=== PATIENT | male | born 2000 | race African-American/Black ===

== ENCOUNTER 2018-02-25 17:32 | Inpatient (IN) | payer OTHER ==
[2018-02-25] MEDS ORDERED: SODIUM CHLORIDE 0.9% 1,000 ML IV STA (17:35)
--- NOTE | 2018-02-25 17:55 | ED ---
General Adult HPI - General Chief complaint: Syncope Stated complaint: syncope Time Seen by Provider: 02/25/18 17:34 Source: patient, RN notes reviewed, old records reviewed Mode of arrival: EMS Limitations: no limitations - History of Present Illness Initial comments: 17-year-old male presents from work with syncopal episode. Patient is a cook at a local restaurant. He was feeling somewhat lightheaded, he went to leave the room, fell striking his head on the doorway. He was unconscious for several minutes. Brought in by EMS. Patient states prior to the fall he did have some vision changes and lightheadedness. He states earlier in the evening he was feeling somewhat lightheaded but this resolved with rest. No chest pain or palpitations. No nausea vomiting or diarrhea. He did state that yesterday he did not eat or drink much. No fever or chills. Patient denies fever. Denies abdominal pain. Denies headache. Denies focal weakness or numbness. Patient has had 2 separate syncopal episodes in the past first one was at the age of 8. - Related Data Home Medications Medication Instructions Recorded Confirmed No Known Home Medications [No 02/25/18 02/25/18 Known Home Medications] Allergies Allergy/AdvReac Type Severity Reaction Status Date / Time No Known Allergies Allergy Verified 02/25/18 17:53 Review of Systems ROS Statement: Those systems with pertinent positive or pertinent negative responses have been documented in the HPI. ROS Other: All systems not noted in ROS Statement are negative. Past Medical History Past Medical History: Syncope History of Any Multi-Drug Resistant Organisms: None Reported Past Surgical History: No Surgical Hx Reported Past Psychological History: No Psychological Hx Reported Smoking Status: Current every day smoker Past Alcohol Use History: None Reported Past Drug Use History: Marijuana General Exam Limitations: no limitations General appearance: alert, in no apparent distress Head exam: Present: atraumatic, normocephalic Eye exam: Present: normal appearance, PERRL ENT exam: Present: normal exam Neck exam: Present: normal inspection. Absent: tenderness, meningismus Respiratory exam: Present: normal lung sounds bilaterally. Absent: respiratory distress Cardiovascular Exam: Present: regular rate, normal rhythm GI/Abdominal exam: Present: soft. Absent: distended, tenderness, guarding Extremities exam: Present: normal inspection, normal capillary refill. Absent: pedal edema Back exam: Present: normal inspection, full ROM Neurological exam: Present: alert, oriented X3, CN II-XII intact. Absent: motor sensory deficit Psychiatric exam: Present: normal affect, normal mood Skin exam: Present: warm, dry, intact. Absent: cyanosis, diaphoretic Course Vital Signs 02/25/18 02/25/18 02/25/18 17:34 18:30 19:16 Temperature 97.6 F Pulse Rate 48 L 69 50 L Respiratory 18 18 18 Rate Blood Pressure 105/57 108/57 116/59 O2 Sat by Pulse 100 100 100 Oximetry EKG Findings - EKG Comments: EKG Findings:: EKG sinus bradycardia, incomplete right bundle branch block, rate of 51, ND interval 162, QRS duration 100, QTC 403, there is ST segment elevation in the precordial leads specifically V2 and V3. Medical Decision Making - Medical Decision Making 17-year-old male with syncopal episode. Sick be may be related to dehydration and the exposure however EKG does show some ST segment changes and an incomplete right bundle, there is concern for Brugada syndrome. Patient has had 3 syncopal episodes in his lifetime. He will be admitted for further evaluation with EP on consult. Chest x-ray and head CT are negative. Electrolytes within normal limits. Hemoglobin stable. - Lab Data Result diagrams: 02/25/18 17:41 02/25/18 17:41 Lab Results 02/25/18 02/25/18 02/25/18 Range/Units 17:41 17:41 17:41 WBC 3.6 L (4.0-11.0) k/uL RBC 4.24 L (4.30-5.90) m/uL Hgb 13.8 (13.0-17.5) gm/dL Hct 40.3 (39.0-53.0) % MCV 95.2 (80.0-100.0) fL MCH 32.5 (25.0-35.0) pg MCHC 34.2 (31.0-37.0) g/dL RDW 12.7 (11.5-15.5) % Plt Count 190 (150-450) k/uL Neutrophils % 49 % Lymphocytes % 41 % Monocytes % 7 % Eosinophils % 1 % Basophils % 0 % Neutrophils # 1.8 (1.3-7.7) k/uL Lymphocytes # 1.5 (1.0-4.8) k/uL Monocytes # 0.3 (0-1.0) k/uL Eosinophils # 0.0 (0-0.7) k/uL Basophils # 0.0 (0-0.2) k/uL PT (9.0-12.0) sec INR (<1.2) APTT (22.0-30.0) sec Sodium 140 (137-145) mmol/L Potassium 3.9 (3.5-5.1) mmol/L Chloride 101 (98-107) mmol/L Carbon Dioxide 27 (22-30) mmol/L Anion Gap 12 mmol/L BUN 14 (9-20) mg/dL Creatinine 1.10 (0.66-1.25) mg/dL Est GFR (CKD-EPI)AfAm >90 (>60 ml/min/1.73 sqM) Est GFR (CKD-EPI)NonAf >90 (>60 ml/min/1.73 sqM) Glucose 146 H (74-99) mg/dL Calcium 9.3 (8.4-10.2) mg/dL Magnesium 1.6 (1.6-2.3) mg/dL Total Bilirubin 0.9 (0.2-1.3) mg/dL AST 18 (17-59) U/L ALT 26 (21-72) U/L Alkaline Phosphatase 36 L (38-126) U/L Total Creatine Kinase 61 (55-170) U/L CK-MB (CK-2) 0.4 (0.0-2.4) ng/mL CK-MB (CK-2) Rel Index 0.7 Troponin I <0.012 (0.000-0.034) ng/mL Total Protein 6.6 (6.3-8.2) g/dL Albumin 4.2 (3.5-5.0) g/dL Urine Color Urine Appearance (Clear) Urine pH (5.0-8.0) Ur Specific [place] (1.001-1.035) Urine Protein (Negative) Urine Glucose (UA) (Negative) Urine Ketones (Negative) Urine Blood (Negative) Urine Nitrite (Negative) Urine Bilirubin (Negative) Urine Urobilinogen (<2.0) mg/dL Ur Leukocyte Esterase (Negative) Urine RBC (0-5) /hpf Urine WBC (0-5) /hpf Ur Squamous Epith Cells (0-4) /hpf Urine Bacteria (None) /hpf Hyaline Casts (0-2) /lpf Urine Mucus (None) /hpf Urine Opiates Screen (NotDetected) Ur Oxycodone Screen (NotDetected) Urine Methadone Screen (NotDetected) Ur Propoxyphene Screen (NotDetected) Ur Barbiturates Screen (NotDetected) U Tricyclic Antidepress (NotDetected) Ur Phencyclidine Scrn (NotDetected) Ur Amphetamines Screen (NotDetected) U Methamphetamines Scrn (NotDetected) U Benzodiazepines Scrn (NotDetected) Urine Cocaine Screen (NotDetected) U Marijuana (THC) Screen (NotDetected) Serum Alcohol <10 mg/dL 02/25/18 02/25/18 Range/Units 17:41 18:59 WBC (4.0-11.0) k/uL RBC (4.30-5.90) m/uL Hgb (13.0-17.5) gm/dL Hct (39.0-53.0) % MCV (80.0-100.0) fL MCH (25.0-35.0) pg MCHC (31.0-37.0) g/dL RDW (11.5-15.5) % Plt Count (150-450) k/uL Neutrophils % % Lymphocytes % % Monocytes % % Eosinophils % % Basophils % % Neutrophils # (1.3-7.7) k/uL Lymphocytes # (1.0-4.8) k/uL Monocytes # (0-1.0) k/uL Eosinophils # (0-0.7) k/uL Basophils # (0-0.2) k/uL PT 11.8 (9.0-12.0) sec INR 1.2 H (<1.2) APTT 22.2 (22.0-30.0) sec Sodium (137-145) mmol/L Potassium (3.5-5.1) mmol/L Chloride (98-107) mmol/L Carbon Dioxide (22-30) mmol/L Anion Gap mmol/L BUN (9-20) mg/dL Creatinine (0.66-1.25) mg/dL Est GFR (CKD-EPI)AfAm (>60 ml/min/1.73 sqM) Est GFR (CKD-EPI)NonAf (>60 ml/min/1.73 sqM) Glucose (74-99) mg/dL Calcium (8.4-10.2) mg/dL Magnesium (1.6-2.3) mg/dL Total Bilirubin (0.2-1.3) mg/dL AST (17-59) U/L ALT (21-72) U/L Alkaline Phosphatase (38-126) U/L Total Creatine Kinase (55-170) U/L CK-MB (CK-2) (0.0-2.4) ng/mL CK-MB (CK-2) Rel Index Troponin I (0.000-0.034) ng/mL Total Protein (6.3-8.2) g/dL Albumin (3.5-5.0) g/dL Urine Color Yellow Urine Appearance Clear (Clear) Urine pH 6.0 (5.0-8.0) Ur Specific [place] 1.021 (1.001-1.035) Urine Protein 1+ H (Negative) Urine Glucose (UA) Negative (Negative) Urine Ketones Negative (Negative) Urine Blood Negative (Negative) Urine Nitrite Negative (Negative) Urine Bilirubin Negative (Negative) Urine Urobilinogen 2.0 (<2.0) mg/dL Ur Leukocyte Esterase Negative (Negative) Urine RBC <1 (0-5) /hpf Urine WBC 2 (0-5) /hpf Ur Squamous Epith Cells <1 (0-4) /hpf Urine Bacteria Rare H (None) /hpf Hyaline Casts 22 H (0-2) /lpf Urine Mucus Many H (None) /hpf Urine Opiates Screen Not Detected (NotDetected) Ur Oxycodone Screen Not Detected (NotDetected) Urine Methadone Screen Not Detected (NotDetected) Ur Propoxyphene Screen Not Detected (NotDetected) Ur Barbiturates Screen Not Detected (NotDetected) U Tricyclic Antidepress Not Detected (NotDetected) Ur Phencyclidine Scrn Not Detected (NotDetected) Ur Amphetamines Screen Not Detected (NotDetected) U Methamphetamines Scrn Not Detected (NotDetected) U Benzodiazepines Scrn Not Detected (NotDetected) Urine Cocaine Screen Not Detected (NotDetected) U Marijuana (THC) Screen Detected H (NotDetected) Serum Alcohol mg/dL Disposition Clinical Impression: Syncope Disposition: ADMITTED IP TO THIS HOSP Condition: Stable Is patient prescribed a controlled substance at d/c from ED?: No Referrals: None,Stated [Primary Care Provider] - 1-2 days Decision to Admit Reason: Admit from EC Decision Date: 02/25/18 Decision Time: 20:22
[2018-02-25 18:03] LABS: Basophils % (A) 0 %; Eosinophils % (A) 1 %; HCT 40.3 % (39.0-53.0); HGB 13.8 gm/dL (13.0-17.5); Lymphocytes # (A) 1.5 k/uL (1.0-4.8); Lymphocytes % (A) 41 %; MCH 32.5 pg (25.0-35.0); MCHC 34.2 g/dL (31.0-37.0); MCV 95.2 fL (80.0-100.0); Mean Platelet Volume 7.6; Monocytes # (A) 0.3 k/uL (0-1.0); Monocytes % (A) 7 %; Neutrophils # (A) 1.8 k/uL (1.3-7.7); Neutrophils % (A) 49 %; Platelet Count 190 k/uL (150-450); RBC 4.24 m/uL (4.30-5.90); RDW 12.7 % (11.5-15.5); WBC 3.6 k/uL (4.0-11.0)
--- NOTE | 2018-02-25 18:06 | XR ---
EXAMINATION TYPE: XR chest 2V DATE OF EXAM: 02/25/2018 COMPARISON: 10/29/2002 HISTORY: Syncope TECHNIQUE: Frontal and lateral views of the chest are obtained. FINDINGS: Heart and mediastinum are normal. Lungs are clear. Diaphragm is normal. There are chest le ads. Bony thorax is intact. IMPRESSION: Normal chest.
[2018-02-25 18:09] LABS: INR 1.2 (<1.2); Prothrombin Time 11.8 sec (9.0-12.0)
[2018-02-25 18:10] LABS: Partial Thromboplastin Time 22.2 sec (22.0-30.0)
[2018-02-25 18:17] LABS: ALT 26 U/L (21-72); AST 18 U/L (17-59); Albumin 4.2 g/dL (3.5-5.0); Alcohol <10 mg/dL; Alkaline Phosphatase 36 U/L (38-126); Anion Gap 12 mmol/L; Blood Urea Nitrogen 14 mg/dL (9-20); Calcium 9.3 mg/dL (8.4-10.2); Carbon Dioxide 27 mmol/L (22-30); Chloride 101 mmol/L (98-107); Glucose 146 mg/dL (74-99); Magnesium 1.6 mg/dL (1.6-2.3); Potassium 3.9 mmol/L (3.5-5.1); Sodium 140 mmol/L (137-145); Total Bilirubin 0.9 mg/dL (0.2-1.3); Total Protein 6.6 g/dL (6.3-8.2)
[2018-02-25 18:27] LABS: Creatine Kinase 61 U/L (55-170)
[2018-02-25 18:39] LABS: Creatine Kinase MB 0.4 ng/mL (0.0-2.4); Troponin I <0.012 ng/mL (0.000-0.034)
--- NOTE | 2018-02-25 19:04 | CT ---
EXAMINATION TYPE: CT brain wo con DATE OF EXAM: 02/25/2018 COMPARISON: NONE HISTORY: Syncope. CT DLP: 969.9 mGycm. Automated Exposure Control for Dose Reduction was Utilized. TECHNIQUE: CT scan of the head is performed without contrast. FINDINGS: Ventricles and sulci appear normal. There is no mass effect nor midline shift. There is no sign of intracranial hemorrhage. The calvarium appears normal. CONCLUSION: Normal head CT scan.
[2018-02-25 19:12] LABS: Appearance,Urine Clear (Clear); Bacteria,Urine Rare /hpf; Bilirubin,Urine Negative (Negative); Blood,Urine Negative (Negative); Color,Urine Yellow; Glucose,Urine (UA) Negative (Negative); Hyaline Casts,Urine 22 /lpf (0-2); Ketones,Urine Negative (Negative); Leukocyte Esterase,Urine Negative (Negative); Mucus,Urine Many /hpf; Nitrite,Urine Negative (Negative); Protein,Urine 1+ (Negative); RBC,Urine <1 /hpf (0-5); Specific Gravity,Urine 1.021 (1.001-1.035); Squamous Epithelial Cell,Urine <1 /hpf (0-4); WBC,Urine 2 /hpf (0-5)
[2018-02-25 19:20] LABS: Amphetamine Screen,Urine Not Detected (NotDetected); Barbiturate Screen,Urine Not Detected (NotDetected); Benzodiazepines Screen,Urine Not Detected (NotDetected); Cocaine Screen,Urine Not Detected (NotDetected); Methadone Screen, Urine Not Detected (NotDetected); Opiate Screen,Urine Not Detected (NotDetected); Oxycodone Screen, Urine Not Detected (NotDetected); Phencyclidine Screen,Urine Not Detected (NotDetected); Tricyclic Antidepressant,Urine Not Detected (NotDetected); Urn Cannabinoid Scrn Detected (NotDetected)
[2018-02-25] MEDS ORDERED: NALOXONE 0.4 MG/ML 1 ML VIAL IV PRN (20:11)
[2018-02-25] MEDS ORDERED: ACETAMINOPHEN TAB 325 MG TAB PO PRN (20:11)
--- NOTE | 2018-02-25 21:14 | HP ---
HISTORY AND PHYSICAL DATE OF SERVICE: 02/25/2018 CHIEF COMPLAINT: Syncope. HISTORY OF PRESENT ILLNESS: This 17-year-old gentleman had a previous history of at least 2 episodes of syncope at age of 7-8 and 11 years. The patient follows with in the outpatient setting. 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 The patient was cooking some vegetables and felt sick and the patient is slightly dizzy. Patient went to the locker room. Patient came back and was standing on the line. Subsequently, patient passed out apparently for a minute also and the patient was apparently confused also per the bystanders and the EMS brought to the patient to hospital and admitted for further evaluation and treatment. Patient was found to be bradycardic. EKG showed incomplete right bundle branch block with ST changes in the anterior leads also. The previous EKG done during the previous episode of syncope also similar. There is no history of fever, rigors. No history of headache, loss of consciousness, seizures at this time. PAST MEDICAL HISTORY: History of syncope and recurrent history of THC. MEDICATIONS: None. ALLERGIES: None. FAMILY HISTORY: No history of heart disease or strokes in the family. SOCIAL HISTORY: History of THC and smoking. REVIEW OF SYSTEMS: ENT: No diminished hearing, diminished vision. CARDIOVASCULAR: As mentioned earlier. RESPIRATORY: As mentioned earlier. GI: No nausea or vomiting. : No dysuria. NERVOUS: As mentioned earlier. ALLERGY/IMMUNOLOGY: No asthma or hay fever. MUSCULOSKELETAL: As mentioned earlier. HEMATOLOGY/ONCOLOGY: No history of anemia. ENDOCRINE: No history of diabetes, hypothyroidism. CONSTITUTIONAL: As mentioned earlier. DERMATOLOGY: Negative. RHEUMATOLOGY: Negative. PSYCHIATRY: As mentioned earlier. PHYSICAL EXAMINATION: Alert, oriented x3. The pulse is 48, blood pressure 105/56, respirations 18, temperature 97.6, pulse ox 100% on room air. HEENT: Conjunctivae normal. NECK: No jugular venous distention. CARDIOVASCULAR: S1, S2 bradycardic. RESPIRATORY: Breath sounds diminished in the bases. No rhonchi. No crackles. ABDOMEN: Soft, nontender. No mass palpable. LEGS: No edema. No swelling. NERVOUS SYSTEM: Higher functions as mentioned earlier. Moves all 4 limbs. No focal motor or sensory deficits. LYMPHATIC: No lymphadenopathy in neck or axillae. SKIN: No ulcer, rash or bleeding. LABS: WBC 3.6, hemoglobin 13.8, INR 1.2. Glucose 146. ASSESSMENT: 1. Recurrent syncope, rule out cardiac arrhythmia. 2. ST-T changes, incomplete right bundle branch block in the anterior lead EKGs. 3. History of THC. 4. History of nicotine dependence. RECOMMENDATIONS AND DISCUSSION: In this 17-year-old gentleman who presented with multiple medical issues, will monitor the patient closely. Continue the current medical management and will monitor overnight telemetry, symptomatic treatment. Otherwise, I would also recommend a 2D echo with a Doppler, cardiology evaluation. The troponin is negative at this time. Further recommendations to follow. MMODL / IJN: [id number] / SUHAS
[2018-02-26 11:05] VITALS: RESP 16; TEMP 97.9
--- NOTE | 2018-02-26 11:11 | ECHOF ---
Referral Reason:Syncope MEASUREMENTS -------- HEIGHT: 180.3 cm WEIGHT: 70.3 kg BP: 123/80 IVSd: 1.1 cm (0.6 - 1.1) LVIDd: 5.3 cm (3.9 - 5.3) LVPWd: 0.9 cm (0.6 - 1.1) IVSs: 1.8 cm LVIDs: 1.9 cm LVPWs: 1.7 cm Ao Diam: 3.3 cm (2.0 - 3.7) AV Cusp: 2.2 cm (1.5 - 2.6) LA Diam: 3.0 cm (2.7 - 3.8) MV EXCURSION: 30.738 mm (> 18.000) MV EF SLOPE: 333 mm/s (70 - 150) EPSS: 0.3 cm MV E Branden: 0.80 m/s MV DecT: 189 ms MV A Branden: 0.39 m/s MV E/A Ratio: 2.07 RAP: 15.00 mmHg RVSP: 35.41 mmHg FINDINGS -------- Resting bradycardia (HR<60bpm). This was a technically good study. The left ventricular size is normal. Left ventricular wall thickness is normal. Overall left vent ricular systolic function is low-normal with, an EF between 50 - 55 %. The right ventricle is normal in size and function. The left atrium is normal in size. The right atrium is normal in size. The aortic valve is trileaflet, and appears structurally normal. No aortic stenosis or regurgitation. Mild mitral regurgitation is present. Cannot exclude mitral valve prolapse. Mild tricuspid regurgitation present. The right ventricular systolic pressure, as measured by Doppl er, is 35.41mmHg. Pulmonic valve appears structurally normal. The aortic root size is normal. The inferior vena cava is mildly dilated. The pericardium is normal. CONCLUSIONS -------- 1. Resting bradycardia (HR<60bpm). 2. This was a technically good study. 3. The left ventricular size is normal. 4. Left ventricular wall thickness is normal. 5. Overall left ventricular systolic function is low-normal with, an EF between 50 - 55 %. 6. The right ventricle is normal in size and function. 7. The left atrium is normal in size. 8. The right atrium is normal in size. 9. The aortic valve is trileaflet, and appears structurally normal. No aortic stenosis or regurgitati on. 10. Mild mitral regurgitation is present. 11. Cannot exclude mitral valve prolapse. 12. Mild tricuspid regurgitation present. 13. The right ventricular systolic pressure, as measured by Doppler, is 35.41mmHg. 14. Pulmonic valve appears structurally normal. 15. The aortic root size is normal. 16. The inferior vena cava is mildly dilated. 17. The pericardium is normal. MANAGER INFUSION: Summer Baltazar RDCS
[2018-02-26 13:28] VITALS: BMI 32.2
[2018-02-26 14:58] VITALS: BP 119/60; PULSE 53
--- NOTE | 2018-02-26 15:09 | P.CRDCN ---
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 He also claimed that he was not eating properly. Suddenly started feeling bloody and could not hear properly and felt that these would pass out. Patient went and sat and felt better. He again went back to the kitchen and start cooking. Again, patient had similar symptoms and this time he could not avoid falling. Apparently, hit a door and fell to the ground. When paramedics arrived patient was awake but seemed to be confused. Patient was brought to the hospital here. Since admission, the patient has been stable. No arrhythmias are noted. EKG showed a sinus rhythm with incomplete right bundle-branch block and ST-T abnormalities in anterolateral leads. There is a J-point elevation and inversion of the T waves. Repeat EKG also showed similar changes but somewhat improved. Apparently patient had similar changes in the past. He did not have any significant palpitations. His echocardiogram did not reveal any significant wall motion abnormalities. Patient's symptoms of systems vasovagal syncope. We'll check his blood pressure per postural changes. If her patient blood pressure is stable, patient will be discharged home. Patient failed outpatient stress test and also event monitor. Subsequently we'll also have him see an deblocker. Follow-up as an outpatient. Review of Systems As per the chart Past Medical History Past Medical History: Syncope Additional Past Medical History / Comment(s): closed head injury, concussion History of Any Multi-Drug Resistant Organisms: None Reported Past Surgical History: No Surgical Hx Reported Past Psychological History: No Psychological Hx Reported Smoking Status: Current every day smoker Past Alcohol Use History: None Reported Past Drug Use History: Marijuana - Past Family History Father Family Medical History: No Reported History Mother Family Medical History: No Reported History Medications and Allergies Home Medications Medication Instructions Recorded Confirmed Type No Known Home Medications [No 02/25/18 02/25/18 History Known Home Medications] Allergies Allergy/AdvReac Type Severity Reaction Status Date / Time No Known Allergies Allergy Verified 02/25/18 17:53 Physical Exam Vitals: Vital Signs Temp Pulse Pulse Resp BP BP BP 02/26/18 14:56 53 L 119/79 119/60 02/26/18 11:04 97.9 F 62 16 115/57 02/26/18 07:10 53 L 18 123/80 02/26/18 06:35 68 16 115/57 02/26/18 05:36 53 L 15 113/69 02/26/18 04:07 46 L 16 113/66 02/26/18 03:06 46 L 16 99/47 02/26/18 01:32 46 L 16 108/49 02/26/18 00:00 64 18 106/60 02/25/18 23:04 51 L 16 113/64 02/25/18 21:00 56 L 18 100/54 02/25/18 20:00 80 16 108/58 02/25/18 19:20 46 L 02/25/18 19:16 50 L 18 116/59 02/25/18 18:30 69 18 108/57 02/25/18 17:34 97.6 F 48 L 18 105/57 Pulse Ox 02/26/18 14:56 02/26/18 11:04 100 02/26/18 07:10 98 02/26/18 06:35 98 02/26/18 05:36 98 02/26/18 04:07 99 02/26/18 03:06 99 02/26/18 01:32 99 02/26/18 00:00 99 02/25/18 23:04 97 02/25/18 21:00 99 02/25/18 20:00 100 02/25/18 19:20 02/25/18 19:16 100 02/25/18 18:30 100 02/25/18 17:34 100 Intake and Output 02/25/18 02/26/18 02/26/18 22:59 06:59 14:59 Other: # Voids 1 Weight 70.307 kg 70 kg GENERAL EXAM: Patient is alert and oriented and doesn't appear to be in any acute distress HEENT: Normocephalic. Normal reaction of pupils, equal size, normal range of extraocular motion. No erythema or exudates in the throat. NECK: No masses, no nuchal rigidity. CHEST: No chest wall deformity. LUNGS: Equal air entry with no crackles or wheeze. HEART: S1 and S2 normal with no audible mumurs or gallops. Regular rhythm, femorals equal on both sides.. ABDOMEN: No hepatosplenomegaly, normal bowel sounds, no guarding or rigidity. SKIN: No rashes CENTRAL NERVOUS SYSTEM: No focal deficits. EXTREMITIES: No cyanosis, clubbing or edema. Results 02/25/18 17:41 02/25/18 17:41 Cardiac Enzymes 02/25/18 02/25/18 Range/Units 17:41 17:41 AST 18 (17-59) U/L CK-MB (CK-2) 0.4 (0.0-2.4) ng/mL Troponin I <0.012 (0.000-0.034) ng/mL Coagulation 02/25/18 Range/Units 17:41 PT 11.8 (9.0-12.0) sec APTT 22.2 (22.0-30.0) sec CBC 02/25/18 Range/Units 17:41 WBC 3.6 L (4.0-11.0) k/uL RBC 4.24 L (4.30-5.90) m/uL Hgb 13.8 (13.0-17.5) gm/dL Hct 40.3 (39.0-53.0) % Plt Count 190 (150-450) k/uL Comprehensive Metabolic Panel 02/25/18 Range/Units 17:41 Sodium 140 (137-145) mmol/L Potassium 3.9 (3.5-5.1) mmol/L Chloride 101 (98-107) mmol/L Carbon Dioxide 27 (22-30) mmol/L BUN 14 (9-20) mg/dL Creatinine 1.10 (0.66-1.25) mg/dL Glucose 146 H (74-99) mg/dL Calcium 9.3 (8.4-10.2) mg/dL AST 18 (17-59) U/L ALT 26 (21-72) U/L Alkaline Phosphatase 36 L (38-126) U/L Total Protein 6.6 (6.3-8.2) g/dL Albumin 4.2 (3.5-5.0) g/dL Current Medications Generic Name Dose Route Start Last Admin Trade Name Freq PRN Reason Stop Dose Admin Acetaminophen 650 mg 02/25/18 20:11 Tylenol Tab PO Q6HR PRN Mild Pain or Fever > 100.5 Naloxone HCl 0.2 mg 02/25/18 20:11 Narcan IV Q2M PRN Opioid Reversal Intake and Output 02/25/18 02/26/18 02/26/18 22:59 06:59 14:59 Other: # Voids 1 Weight 70.307 kg 70 kg Patient Weight 02/27/18 06:59 Weight 70 kg 02/25/18 17:41 02/25/18 17:41 EKG Interpretations (text) Sinus rhythm with incomplete right bundle-branch block pattern with ST-T abnormalities in anterolateral leads. This seemed to be early repolarization changes. Not typical of Brugada syndrome Assessment and Plan (1) Vasovagal syncope Current Visit: Yes Status: Acute Code(s): R55 - SYNCOPE AND COLLAPSE SNOMED Code(s): 671235522 (2) Syncope Current Visit: Yes Status: Acute Code(s): R55 - SYNCOPE AND COLLAPSE SNOMED Code(s): 694160593 (3) Abnormal EKG Current Visit: Yes Status: Acute Code(s): R94.31 - ABNORMAL ELECTROCARDIOGRAM [ECG] [EKG] SNOMED Code(s): 372412799 (4) History of marijuana use Current Visit: Yes Status: Acute Code(s): Z87.898 - PERSONAL HISTORY OF OTHER SPECIFIED CONDITIONS SNOMED Code(s): 420492119 Plan: Check blood pressure for any postural changes. He is otherwise stable, patient will be discharged home. Outpatient stress test and event monitor to be arranged. We'll also make her appointment to see deblocker.
--- NOTE | 2018-02-26 22:04 | DS ---
DISCHARGE SUMMARY FINAL DIAGNOSES: 1. Recurrent syncope, rule out cardiac arrhythmia. 2. History of dizziness on the EKG with incomplete right bundle block on anterior leads at the J-point elevation. 3. History of THC. 4. History of nicotine dependence. DISCHARGE DISPOSITION: The patient is being discharged in stable condition with guarded prognosis. Cardiology cleared the patient. HISTORY OF PRESENT ILLNESS: This 17-year-old gentleman was admitted with recurrent syncope. EKG showed some changes. 2D echo was normal. Patient is asymptomatic and telemetry was also unremarkable. Cardiology saw the patient. Recommended outpatient followup. On exam, vitals are stable. CARDIOVASCULAR: S1 and S2. ABDOMEN: Soft. NERVOUS SYSTEM: No focal deficits. DISCHARGE ADVICE AND MEDICATIONS: 1. Diet is cardiac. 2. Activity limited until follow up. 3. Follow up with primary physician to 1-2 days. 4. Follow up with Dr. Davila. 5. Cardiology has recommended to avoid smoking and THC. MMODL / IJN: [id number] /
== END 2018-02-26 15:20 | disposition home or self-care (01) | DRG 312 ==
LOC: EC 17:32 → 6SEL 20:11
PROVIDERS: ADMIT Hospitalist; ATTEND Hospitalist
DX: R55 Syncope and collapse (principal); E86.0 Dehydration; I45.10 Unspecified right bundle-branch block; F17.200 Nicotine dependence, unspecified, uncomplicated; Z71.6 Tobacco abuse counseling; W18.30XA Fall on same level, unspecified, initial encounter; Z87.820 Personal history of traumatic brain injury
CPT/HCPCS: 36415; 70450; 71046; 80053; 80306; 80320; 81001; 82550; 82553; 83735; 84443; 84484; 85025; 85610; 85730; 93005; 93306; 96360; 99285